=== PATIENT | female | born 1975 | race Caucasian/White ===

== ENCOUNTER 2021-02-01 16:38 | Emergency (ER) | payer OTHER ==
[~2021-02-01] VITALS: Ht 160 cm; Wt 80.8 kg
[2021-02-01] MEDS ORDERED: DIPHENHYDRAMINE 50 MG/ML, 1ML ONE (17:27)
[2021-02-01] MEDS ORDERED: DEXAMETHASONE 4 MG TABLET ONE (17:27)
[2021-02-01] MEDS ORDERED: CEFTRIAXONE 1,000 MG ONE (17:27)
[2021-02-01] MEDS ORDERED: METOCLOPRAMIDE 5 MG/ML, 2ML ONE (17:28)
[2021-02-01 17:30] LABS: BASOPHILS % (AUTO) 1 % (0-1); EOSINOPHILS % (AUTO) 1 % (1-7); LYMPHOCYTES % (AUTO) 28 % (22-44); MEAN CORPUSCULAR HEMOGLOBIN 25.5 pg (27.0-34.8); MEAN CORPUSCULAR HGB CONC 32.2 g/dL (32.4-35.8); MEAN PLATELET VOLUME 8.1 fL (7.4-10.4); MONOCYTES % (AUTO) 12 % (2-9); NEUTROPHILS % (AUTO) 59 % (42-75); PLATELET COUNT 275 x10^3/uL (130-400); RED BLOOD COUNT 3.76 x10^6/uL (3.82-5.3); RED CELL DISTRIBUTION WIDTH 16.1 % (9.6-15.2)
[2021-02-01] MEDS ORDERED: CEFTRIAXONE 1,000 MG IM ONE (17:30)
[2021-02-01] MEDS ORDERED: METOCLOPRAMIDE 5 MG/ML, 2ML IVPush ONE (17:30)
[2021-02-01] MEDS ORDERED: DEXAMETHASONE 4 MG TABLET PO ONE (17:30)
[2021-02-01] MEDS ORDERED: DIPHENHYDRAMINE 50 MG/ML, 1ML IVPush ONE (17:30)
[2021-02-01 17:33] LABS: MD NO
[2021-02-01 17:35] LABS: ANION GAP 6 mmol/L (5-15); CALCIUM 8.2 mg/dL (8.5-10.1); CHLORIDE 108 mmol/L (98-107); CREATININE 0.77 mg/dL (0.55-1.02)
[2021-02-01 17:59] VITALS: BP 107/61
--- NOTE | 2021-02-01 18:00 | NUR ---
BREAK RN: PT LAYING ON GURNEY AWAKE & COMFORTABLE, NAD/VSS, NO NEEDS AT THIS TIME, CALL LIGHT WITHIN REACH.
== END 2021-02-01 19:03 | disposition home or self-care (01) ==
LOC: ED 18:55
DX: G44.52 New daily persistent headache (NDPH) (principal); D64.9 Anemia, unspecified; A54.42 Gonococcal arthritis
CPT/HCPCS: 36415; 70450; 80048; 85025; 96372; 96374; 96375; 99285; J0696; J1200; J2765; 99284

== ENCOUNTER → 2021-07-13 | Outpatient (CLI) | payer OTHER | END | disposition home or self-care (01) | LOC: LAB 07:18 | PROVIDERS: ATTEND Family Medicine | DX: Z13.220 Encounter for screening for lipoid disorders (principal); Z13.1 Encounter for screening for diabetes mellitus; M25.50 Pain in unspecified joint; D64.9 Anemia, unspecified; M54.5 Low back pain ==